=== PATIENT | female | born 1995 | race Caucasian/White ===

== ENCOUNTER 2018-06-03 17:25 | Emergency (ER) | payer BC ==
--- NOTE | 2018-06-03 17:42 | EDM.PDOC ---
ED HPI GENERAL MEDICAL PROBLEM - General Chief Complaint: Chest Pain Stated Complaint: CHEST PAIN Time Seen by Provider: 06/03/18 17:32 - History of Present Illness INITIAL COMMENTS - FREE TEXT/NARRATIVE: HISTORY AND PHYSICAL: History of present illness: Patient is a 23-year-old white female presents with chest pain described without associated shortness of breath palpitations nausea vomiting or other concern is been no trauma Review of systems: As per history of present illness and below otherwise all systems reviewed and negative. Past medical history: As per history of present illness and as reviewed below otherwise noncontributory. Surgical history: As per history of present illness and as reviewed below otherwise noncontributory. Social history: No reported history of drug or alcohol abuse. Family history: As per history of present illness and as reviewed below otherwise noncontributory. Physical exam: HEENT: Atraumatic, normocephalic, pupils reactive, negative for conjunctival pallor or scleral icterus, mucous membranes moist, throat clear, neck supple, nontender, trachea midline. Lungs: Clear to auscultation, breath sounds equal bilaterally, chest nontender. Heart: S1S2, regular, negative for clicks, rubs, or JVD. Abdomen: Soft, nondistended, nontender. Negative for masses or hepatosplenomegaly. Negative for costovertebral tenderness. Pelvis: Stable nontender. Genitourinary: Deferred. Rectal: Deferred. Extremities: Atraumatic, negative for cords or calf pain. Neurovascular unremarkable. Neuro: Awake, alert, oriented. Cranial nerves II through XII unremarkable. Cerebellum unremarkable. Motor and sensory unremarkable throughout. Exam nonfocal. Diagnostics: Chest x-ray EKG Therapeutic none Impression: #1 atypical chest pain Definitive disposition and diagnosis as appropriate pending reevaluation and review of above. chest Pain Score (Numeric/FACES): 5 - Related Data Allergies Allergy/AdvReac Type Severity Reaction Status Date / Time acetaminophen [From Vicodin] Allergy Hallucinati Verified 06/03/18 17:31 ons hydrocodone bitartrate Allergy Hallucinati Verified 06/03/18 17:31 [From Vicodin] ons Home Meds: Home Meds Levothyroxine 75 mcg PO DAILY 10/24/14 [History] Citalopram [Citalopram HBr] 20 mg PO DAILY 06/03/18 [History] T8 2 tab PO DAILY 06/03/18 [History] Past Medical History HEENT History: Reports: Impaired Vision, Other (See Below) Other HEENT History: wears glasses Cardiovascular History: Reports: None Respiratory History: Reports: None Gastrointestinal History: Reports: None Genitourinary History: Reports: None 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 Other ACCOUNT INSTALLATION SPECIALIST History: right fallopian tube removed Musculoskeletal History: Reports: None Neurological History: Reports: None Psychiatric History: Reports: None Endocrine/Metabolic History: Reports: Hypothyroidism Hematologic History: Reports: None Immunologic History: Reports: None Oncologic (Cancer) History: Reports: None Dermatologic History: Reports: None - Past Surgical History Head Surgeries/Procedures: Reports: None HEENT Surgical History: Reports: None Cardiovascular Surgical History: Reports: None Respiratory Surgical History: Reports: None GI Surgical History: Reports: None Female Surgical History: Reports: Other (See Below) Endocrine Surgical History: Reports: Other (See Below) Other Endocrine Surgeries/Procedures: partial thyroidectomy Neurological Surgical History: Reports: C-Spine Musculoskeletal Surgical History: Reports: None Oncologic Surgical History: Reports: None Dermatological Surgical History: Reports: None Social & Family History - Family History Family Medical History: Noncontributory Cardiac: Reports: Hypertension Neurological: Reports: Other (See Below) Other Neurological Family History: epilepsy Endocrine/Metabolic: Reports: Diabetes, type II - Tobacco Use Smoking Status *Q: Current Every Day Smoker Years of Tobacco use: 11 Packs/Tins Daily: 0.5 - Caffeine Use Caffeine Use: Reports: Coffee - Recreational Drug Use Recreational Drug Use: No ED ROS GENERAL - Review of Systems Review Of Systems: ROS reveals no pertinent complaints other than HPI. ED EXAM, GENERAL - Physical Exam Exam: See Below (See dictation) Course - Vital Signs Last Recorded V/S: Last Vital Signs Temp 36.6 C 06/03/18 17:32 Pulse 76 06/03/18 17:32 Resp 18 06/03/18 17:32 BP 154/97 H 06/03/18 17:32 Pulse Ox 99 06/03/18 17:32 Departure - Departure Time of Disposition: 17:41 Disposition: Home, Self-Care 01 Condition: Good Clinical Impression: Atypical chest pain - Discharge Information Referrals: PCP,None [Primary Care Provider] -
--- NOTE | 2018-06-03 18:14 | CR ---
HISTORY: Chest pain with lightheadedness and dizziness. COMPARISON: 07/19/2015 FINDINGS: A portable erect AP view of the chest was obtained at 1745 hours. The lungs remain clear. No focal or diffuse infiltrates are present. The heart remains normal in size. The mediastinum is normal in appearance. The osseous structures are normal in appearance for the patient`s age. IMPRESSION: Normal portable chest single view. Dictated by Cesar Montaño MD @ Jun 03 2018 6:13PM Signed by Dr. Cesar Montaño @ Jun 03 2018 6:14PM
[2018-06-03 18:45] VITALS: BP 127/79
== END 2018-06-03 18:45 | disposition home or self-care (01) ==
LOC: MW.ED 17:25
DX: R07.89 Other chest pain (principal); E03.9 Hypothyroidism, unspecified; F17.210 Nicotine dependence, cigarettes, uncomplicated; Z88.8 Allergy status to other drugs, medicaments and biological substances; Z79.899 Other long term (current) drug therapy
CPT/HCPCS: 71045; 71045-26; 93005; 99282; 99283-25

== ENCOUNTER 2019-11-04 10:51 | Emergency (ER) | payer BC ==
--- NOTE | 2019-11-04 11:13 | EDM.PDOC ---
ED HPI GENERAL MEDICAL PROBLEM - General Stated Complaint: SHAKY, HARD TO BREATH, CHEST PAIN Time Seen by Provider: 11/04/19 10:54 Source of Information: Reports: Patient History Limitations: Reports: No Limitations - History of Present Illness INITIAL COMMENTS - FREE TEXT/NARRATIVE: 24-year-old female presents for feeling dizzy and shaky. Symptoms have been waxing and waning over the last 2 weeks, it is exacerbated where bending over, changing position. She does note when she feels dizzy that the room spins. She denies headache, fever, chills, tinnitus, focal numbness or weakness nausea, vomiting, diarrhea, chest pain, shortness of breath, abdominal pain. Her PCP is Dr. Rory Finney but she did not make an appointment to see him. ROS: A 10-point review of systems, other than pertinent positives and negatives as stated per HPI, is otherwise negative PHYSICAL EXAM General: AOx4, GCS = 15, No distress HEENT: dry mucous membrane, TM no erythema bilaterally Neck: supple, no meningismus, no Kernig or Brudzinski Cardiac: S1S2 RRR Respiratory: CTAB, no crackles or rales, no wheezing Abdomen: Soft, nontender, no rebound or guarding, nondistended, no pulsatile mass. Back: nontender Musculoskeletal: NVI distally, no deformity Neuro: No focal deficits, normal gait - Related Data Allergies Allergy/AdvReac Type Severity Reaction Status Date / Time acetaminophen [From Vicodin] Allergy Hallucinati Verified 11/04/19 11:20 ons Antihistamines - Alkylamine Allergy Nausea Verified 11/04/19 11:22 hydrocodone bitartrate Allergy Hallucinati Verified 11/04/19 11:20 [From Vicodin] ons Home Meds: Home Meds Levothyroxine 75 mcg PO DAILY 10/24/14 [History] Citalopram [Citalopram HBr] 20 mg PO DAILY 06/03/18 [History] Meclizine [Antivert] 25 mg PO BID #20 tab 11/04/19 [Rx] Past Medical History HEENT History: Reports: Impaired Vision, Other (See Below) Other HEENT History: wears glasses Cardiovascular History: Reports: None Respiratory History: Reports: None Gastrointestinal History: Reports: None Genitourinary History: Reports: None 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 Other LAYOUT MECHANIC History: right fallopian tube removed Musculoskeletal History: Reports: None Neurological History: Reports: None Psychiatric History: Reports: None Endocrine/Metabolic History: Reports: Hypothyroidism Hematologic History: Reports: None Immunologic History: Reports: None Oncologic (Cancer) History: Reports: None Dermatologic History: Reports: None - Past Surgical History Head Surgeries/Procedures: Reports: None HEENT Surgical History: Reports: None Cardiovascular Surgical History: Reports: None Respiratory Surgical History: Reports: None GI Surgical History: Reports: None Female Surgical History: Reports: Other (See Below) Endocrine Surgical History: Reports: Other (See Below) Other Endocrine Surgeries/Procedures: partial thyroidectomy Neurological Surgical History: Reports: C-Spine Musculoskeletal Surgical History: Reports: None Oncologic Surgical History: Reports: None Dermatological Surgical History: Reports: None Social & Family History - Family History Family Medical History: Noncontributory Cardiac: Reports: Hypertension Neurological: Reports: Other (See Below) Other Neurological Family History: epilepsy Endocrine/Metabolic: Reports: Diabetes, type II - Caffeine Use Caffeine Use: Reports: Coffee ED ROS GENERAL - Review of Systems Review Of Systems: Comprehensive ROS is negative, except as noted in HPI. ED EXAM, GENERAL - Physical Exam Exam: Not Obtained (see dictation) EKG INTERPRETATION EKG Interpretation Comments: 98 Bpm, NSR, normal QRS interval, no STEMI. EKG and rhythm strip interpreted by me at 1118 Course - Vital Signs Last Recorded V/S: Last Vital Signs Temp 96.3 F L 11/04/19 11:18 Pulse 105 H 11/04/19 11:18 Resp 20 11/04/19 11:18 BP 126/86 11/04/19 11:18 Pulse Ox 96 11/04/19 11:18 - Orders/Labs/Meds Orders: Active Orders 24 hr Category Date Time Status EKG 12 Lead [EKG Documentation Completion] [RC] STAT Care 11/04/19 10:54 A ctive - Re-Assessments/Exams Free Text/Narrative Re-Assessment/Exam: After treatments and a prolonged observation period in the ER, the patient improved clinically and is stable for discharge. I performed a repeat examination and the patient has not demonstrated any new abnormal findings. Patient exhibits normal vital signs and has exhibited a normal gait. I advised the patient to return to the ER for reevaluation if symptoms worsened, and to follow up with Dr. Rory Finney within 2-3 days. MEDICAL DECISION MAKING: I reviewed the patients past medical records, lab and radiographic findings. I discussed the case with the patient. My differential diagnosis included: Anxiety, dehydration, BPPV. Patient exhibits a normal gait in the ER, with no focal deficits, her symptoms are intermittent and are positional, I suspect BPPV, I believe she is stable for discharge with a prescription for meclizine. Departure - Departure Time of Disposition: 12:06 Disposition: Home, Self-Care 01 Condition: Good Clinical Impression: Dizziness - Discharge Information *PRESCRIPTION DRUG MONITORING PROGRAM REVIEWED*: Not Applicable *COPY OF PRESCRIPTION DRUG MONITORING REPORT IN PATIENT KURTIS: Not Applicable Prescriptions: Meclizine [Antivert] 25 mg PO BID #20 tab Referrals: Rory Finney MD [Primary Care Provider] - 3 Days Forms: ED Department Discharge Additional Instructions: The following information is given to patients seen in the emergency department who are being discharged to home. This information is to outline your options for follow-up care. We provide all patients seen in our emergency department with a follow-up referral. The need for follow-up, as well as the timing and circumstances, are variable depending upon the specifics of your emergency department visit. If you don't have a primary care physician on staff, we will provide you with a referral. We always advise you to contact your personal physician following an emergency department visit to inform them of the circumstance of the visit and for follow-up with them and/or the need for any referrals to a consulting specialist. The emergency department will also refer you to a specialist when appropriate. This referral assures that you have the opportunity for follow-up care with a specialist. All of these measure are taken in an effort to provide you with optimal care, which includes your follow-up. Under all circumstances we always encourage you to contact your private physician who remains a resource for coordinating your care. When calling for follow-up care, please make the office aware that this follow-up is from your recent emergency room visit. If for any reason you are refused follow-up, please contact the [facility] Emergency Department at and asked to speak to the emergency department charge nurse. If you do not have a primary care doctor, please follow up with the clinics below within 3-[address] [facility] [address] [place] [id number] [facility] [address] [place] [id number] Sepsis Event Note (ED) - Focused Exam Vital Signs: Vital Signs Temp Pulse Resp BP Pulse Ox 11/04/19 11:18 96.3 F L 105 H 20 126/86 96 - My Orders Last 24 Hours: My Active Orders 11/04/19 10:54 EKG 12 Lead [EKG Documentation Completion] [RC] STAT - Assessment/Plan Last 24 Hours: My Active Orders 11/04/19 10:54 EKG 12 Lead [EKG Documentation Completion] [RC] STAT
[2019-11-04 12:22] VITALS: BP 135/90; PULSE 81
== END 2019-11-04 12:17 | disposition home or self-care (01) ==
LOC: MW.ED 10:51
DX: R42 Dizziness and giddiness (principal); R07.9 Chest pain, unspecified; E03.9 Hypothyroidism, unspecified; Z88.8 Allergy status to other drugs, medicaments and biological substances; Z88.5 Allergy status to narcotic agent; Z79.899 Other long term (current) drug therapy
CPT/HCPCS: 93005; 99282; 99284-25

== ENCOUNTER 2023-02-21 10:45 | Day surgery (SDC) | payer BC ==
[2023-02-21] MEDS ORDERED: fentaNYL 100 MCG/2 ML SDV ONE (10:57)
[2023-02-21] MEDS ORDERED: Lidocaine 2% 5 ML SDV ONE (10:57)
[2023-02-21] MEDS ORDERED: Rocuronium Bromide 50 MG/5 ML Syringe ONE (10:57)
[2023-02-21] MEDS ORDERED: Ondansetron 4 MG/2 ML SDV ONE (10:57)
[2023-02-21] MEDS ORDERED: Lactated Ringers 1,000 ML IV SCH (11:00)
[2023-02-21 11:15] LABS: HEMATOCRIT 46.1 % (37.0-47.0); HEMOGLOBIN 16.1 g/dL (12.0-16.0); MEAN CORPUSCULAR HEMOGLOBIN 29.7 pg (28.0-32.0); MEAN CORPUSCULAR HGB CONC 34.9 g/dL (32.0-36.0); MEAN CORPUSCULAR VOLUME 84.9 fL (83.0-99.0); MEAN PLATELET VOLUME 8.7 fL (9.4-12.3); PLATELET COUNT,PLT 389 K/uL (150-400); RED BLOOD CELL COUNT 5.43 M/uL (4.10-5.30)
[2023-02-21] MEDS ORDERED: propofoL 100 ML ONE (11:16)
[2023-02-21] MEDS ORDERED: Morphine 2 MG/ML SYRINGE IVPUSH PRN (11:30)
[2023-02-21] MEDS ORDERED: Ondansetron 4 MG/2 ML SDV IVPUSH PRN (11:30)
[2023-02-21] MEDS ORDERED: Metoclopramide 10 MG/2 ML SDV IVPUSH PRN (11:30)
[2023-02-21] MEDS ORDERED: fentaNYL 50 MCG/ML SDV IVPUSH PRN (11:30)
[2023-02-21] MEDS ORDERED: Naloxone 0.4 MG/ML SDV IVPUSH PRN (11:30)
[2023-02-21] MEDS ORDERED: droPERidol 5 MG/2 ML SDV IVPUSH PRN (11:30)
[2023-02-21] MEDS ORDERED: HYDROmorphone 1 MG/ML Syringe IVPUSH PRN (11:30)
[2023-02-21] MEDS ORDERED: Albuterol 0.083% 2.5 MG/3 ML Neb Soln NEB PRN (11:30)
[2023-02-21] MEDS ORDERED: Metoclopramide 10 MG/2 ML SDV ONE (12:04)
[2023-02-21] MEDS ORDERED: Morphine 10 MG/ML SDV ONE (12:04)
[2023-02-21] MEDS ORDERED: Ketorolac 30 MG/ML SDV ONE (12:08)
[2023-02-21] MEDS ORDERED: Sugammadex Sodium 200 MG/2 ML VIAL ONE (12:13)
[2023-02-21 13:57] VITALS: BP 114/73; PULSE 64
== END 2023-02-21 14:05 | disposition home or self-care (01) ==
LOC: MW.SDS 10:45
PROVIDERS: ATTEND Obstetrics & Gynecology
DX: N84.0 Polyp of corpus uteri (principal); F32.A Depression, unspecified; E03.9 Hypothyroidism, unspecified; E28.2 Polycystic ovarian syndrome; F41.9 Anxiety disorder, unspecified; F17.210 Nicotine dependence, cigarettes, uncomplicated; F17.290 Nicotine dependence, other tobacco product, uncomplicated; Z88.5 Allergy status to narcotic agent; Z88.8 Allergy status to other drugs, medicaments and biological substances; Z79.890 Hormone replacement therapy; Z79.899 Other long term (current) drug therapy
CPT/HCPCS: 36415; 58558; 84703; 85027; J0131; J1885; J2270; J2704; J2765; J3010; J3490; J7120; 00952; J2405